=== PATIENT | female | born 1960 | race African-American/Black ===

== ENCOUNTER 2021-02-22 06:31 | Day surgery (SDC) | payer BC ==
[2021-02-19 12:27] LABS: Urine Appearance CLOUDY (Clear); Urine Bilirubin NEGATIVE (Negative); Urine Blood NEGATIVE (Negative); Urine Color YELLOW (Yellow); Urine Glucose NEGATIVE (Negative); Urine Protein NEGATIVE (Negative); Urine Specific Gravity 1.015 (1.005-1.030); Urine Urobilinogen 0.2 mg/dL (0.2-1.0); Urine pH 7.5 (5.0-7.0)
[2021-02-19 12:29] LABS: Urine Microscopic Reflex NO UMIC
[2021-02-19 12:30] LABS: Absolute Lymphocytes (CBC) 2.5 K/uL (0.7-4.9); Basophils % 0.7 % (0-1.3); Lymphocytes % 40.3 % (15.3-44.8); MPV 9.2 fL (7.6-11.3); RBC Red Blood Cell Count 4.86 M/uL (3.86-4.86)
[2021-02-22] MEDS ORDERED: SCOPOLAMINE HYDROBROMIDE PATCH TD ONE (07:14)
[2021-02-22] MEDS ORDERED: Ringers Lactate 1,000 ML IV ONE ×2 (07:14→07:26)
[2021-02-22] MEDS ORDERED: CEFAZOLIN/SWI 2gm 2 GM/20 ML SYR ONE (07:14)
[2021-02-22] MEDS ORDERED: BUPIVACAINE 0.5% PF 10 ML VIAL ONE (07:26)
[2021-02-22] MEDS ORDERED: NA CHLORIDE 0.9% 2,000 ML ONE (07:26)
[2021-02-22] MEDS ORDERED: propofoL 200 MG/20 ML VIAL IV ONE (07:29)
[2021-02-22] MEDS ORDERED: LIDOCAINE 1% MPF 5 ML VIAL ONE (07:29)
[2021-02-22] MEDS ORDERED: NS 0.9% VIAL 10 ML ONE (07:30)
[2021-02-22] MEDS ORDERED: FENTANYL CITR 250 MCG/5 ML ONE (07:30)
[2021-02-22] MEDS ORDERED: MIDAZOLAM HCL 2 MG/2 ML INJ ONE (07:30)
[2021-02-22] MEDS ORDERED: VECURONIUM 10 MG/VIAL IV ONE (07:30)
[2021-02-22] MEDS ORDERED: dexAMETHasone 10 MG/ML VIAL ONE (08:39)
[2021-02-22] MEDS ORDERED: ONDANSETRON 4 MG/2 ML VIAL ONE ×2 (08:40→11:55)
[2021-02-22] MEDS ORDERED: GLYCOPYRROLATE 0.2 MG/ML SYR ONE (10:15)
[2021-02-22] MEDS ORDERED: KETOROLAC 30 MG/ML INJ ONE (10:15)
[2021-02-22] MEDS ORDERED: NEOSTIGMINE 1 MG/ML -5 ML ONE (10:36)
[2021-02-22] MEDS ORDERED: PROMETHAZINE INJ 25 MG/ML AMP IV PRN (11:09)
[2021-02-22] MEDS ORDERED: MEPERIDINE HCL 25 MG/ML SYR IM PRN (11:09)
[2021-02-22] MEDS ORDERED: IBUPROFEN 200 MG TAB PO PRN (11:09)
--- NOTE | 2021-02-22 11:17 | P.BOP ---
Preoperative diagnosis: ASCUS pap, persistent dysplasia 15yr s/p LEEP Postoperative diagnosis: same, endometriosis, uterine prolapse Primary procedure: TLH BSO, USLS colpopexy, endometriosis removal,cystoscopy Oil Developer: Diana Murillo Estimated blood loss: 50 Specimen: uterus bilateral tubes and ovaries Findings: extensive endometriosis anterior CDS,post peritoneum,C=-1, 2-0PDS for usls Anesthesia: General Complications: None Transferred to: Recovery Room Condition: Good
[2021-02-22] MEDS ORDERED: ALENDRONATE 70 MG TAB PO SCH (12:00)
[2021-02-22] MEDS: HYDROCODONE/APAP 5/325 MG TAB PO PRN ×2 (12:17→14:20)
[2021-02-22] MEDS ORDERED: HYDROCODONE/APAP 5/325 MG TAB ONE ×2 (12:35→14:44)
[2021-02-22] MEDS ORDERED: FENTANYL CITR 100 MCG/2 ML ONE (12:51)
--- NOTE | 2021-02-22 20:31 | OP ---
Date of Procedure: 02/22/2021 Surgeon: Sofía Mishra MD [employer] Field: Diana Diamond. Preoperative Diagnoses: Persistent cervical dysplasia for 15 years status post loop electrosurgical excision procedure for severe cervical dysplasia, recurrent Pap atypical squamous cells of undetermined significance. Postoperative Diagnoses: Persistent cervical dysplasia for 15 years status post loop electrosurgical excision procedure for severe cervical dysplasia, recurrent Pap atypical squamous cells of undetermined significance and endometriosis and uterine prolapse, stage II. Primary Procedure: Total laparoscopic hysterectomy, bilateral salpingo- oophorectomy, uterosacral ligament suspension, colpopexy, endometriosis removal, and cystoscopy. Anesthesia: General. Specimens: Uterus, bilateral tubes and ovaries, and endometriosis included with serosa of the uterine specimen. Complications: No complications. Drains: No drains. Condition: The patient's condition stable. Findings: Extensive endometriosis in the anterior cul-de-sac, posterior peritoneum closer to the distal uterosacral ligaments as well as the immediately lateral to the uterosacral ligaments, point C was at -1 with a significant uterine descend. Although, the patient is asymptomatic unreasonable to not correct the apical prolapse at the time of hysterectomy to prevent future prolapse. So uterosacral ligament suspension was performed with a delayed absorbable PDS. Cystoscopy, both ureteric orifices were patent and no evidence of any trauma to the bladder or foreign body. Description Of Procedure: After informed consent was verified, the patient was taken back to OR. A 2 g of Ancef were given. SCDs were started. The patient was given general endotracheal anesthesia, placed in a dorsal lithotomy position using Adrien stirrups. The vulva, vagina, perineum, abdomen were all prepped and draped in a sterile fashion. Lopez placed to drain the bladder. Pelvic exam performed and this is when the uterine prolapse was discerned. Then, speculum placed to expose the cervix. The uterine manipulator was introduced into the uterus with a medium cup and fixed in place. Lopez drained and connected for retrograde filling. This area was draped. 1 cm infraumbilical incision made with a scalpel using the open laparoscopy technique. Fascia was incised and peritoneum entered sharply. S-retractors were placed. Abdias introduced. After adequate insufflation, site of entry was checked and was unremarkable. The patient was placed in Trendelenburg, 5 left lower quadrant and 10 suprapubic ports were placed under direct vision without any problems. All sides injected with Marcaine on the fascia and the skin. After survey of the upper abdominal cavity as well as the lower, no endometriosis on the upper abdomen, but lower abdominal cavity with significant peritoneal endometriosis as described above. So plan was to not deviate too far from the area of dissection, but remove all the endometriosis that was around. There was some within the anterior cul-de-sac and the posterior peritoneum as well. were excised. The lateral paraovarian area was opened up on the peritoneum. Dissection carried to isolate the pedicle and to the level of the posterior peritoneum. The ureter was visualized at the pelvic brim and thus taken far away from there. The ovarian pedicle was taken down. Then, peritoneum incised and dissection carried to the lateral part of the uterus detaching the tube and ovary from the lateral wall. Then the round ligament was taken down the broad ligament as well as the anterior and posterior pelvic peritoneum layers were taken down to the level of the vessels. The anterior peritoneum opened up to create a bladder flap and posterior peritoneum similarly opened up dissecting the peritoneal implants of the endometriosis along with this. Slightly posterior vaginal wall peritoneum also had it and this was also excised to include with the specimen. Once the vessels were identified, that was cauterized and left in place to be cut later. On the opposite side, similar dissection was performed taking the IP after isolating it, then taking down the peritoneum to separate the tube and ovary from the lateral wall. Then round ligament was taken down and broad ligament taken down as well. Anterior peritoneum connected for to complete the bladder flap and posteriorly taken down to the posterior cuff here and this was very clear that the right uterosacral was much more detached than the left side. Then, the ureters were identified from the pelvic brim to the ureteric tunnels and there was no evidence of any anatomical distortion. The bladder was dissected off the anterior vaginal wall with a monopolar hook blade, vesicovaginal space was entered and bladder was dissected inferiorly about a cm from the level of the cup. Then, the vessels were taken down on the right side with the bipolar basket tip and then the LigaSure. Also took down the cardinal ligaments and in opposite side on the left side vessels were taken down. Monopolar hook blade was used to perform a circumferential colpotomy. Specimen detached and pulled out through the vagina. Vessels were cauterized and cut before the colpotomy was completed. Uterosacral ligament was detached completely on the right side, left could discern where it was, but not very well attached to the apex. So after thorough irrigation and suction were performed and vaginal closure was done with 2 simple angle sutures, 3 [id number] in the center, all 0 Vicryl sutures. Then, 2-0 PDS were taken after exposing the uterosacral ligament. On the left side [id number] was taken then through the posterior vaginal wall and the anterior vaginal full-thickness sutures were taken and tied down bringing the uterosacral very well attached to the apex. Similar suture placed on the opposite side. The uterosacral was much more in the distal aspect, fattier likely from the detachment at least 5 cm proximal. The suture was taken and then passed through the posterior and anterior vaginal white and tied down to resuspend the apex and apex after this exam was -6, after the suspension. Thorough irrigation and suction were performed and all the pedicles were inspected. Excellent hemostasis and ureters had no evidence of electrical, mechanical, or thermal injury to them, had good peristalsis. All the trocars were removed under direct vision, and injected at the fascia and skin with Marcaine. Fascia at the umbilicus closed with the help of the tagged sutures, tied to each other, all 0 Vicryl and a simple 0 Vicryl stitch at the suprapubic fascial site. All skin incisions closed with interrupted 4-0 Vicryl and Lopez removed. Vaginal occluder was removed then went ahead and performed cystoscopy. There was slight delay in the jets of urine from the right side. However, there was a very strong jet convincing that there was no obstruction, partial or complete. Then rest of the bladder appeared completely unremarkable. Scope was pulled out. The bladder partially drained, and the patient was recovered from anesthesia after instrument needle and sponge counts were correct at the end of the case. The findings were discussed with her sister, and she will have the discussion after 1 week postop. JUDITH/HARVEY Voice ID: [id number] Report ID: [id number] ALEX
[2021-02-22 20:45] VITALS: BP 135/76; TEMP 97.8; O2SAT 96
[2021-02-22] MEDS ORDERED: ASCORBIC ACID 500 MG TABLET PO SCH (21:00)
[2021-02-22] MEDS ORDERED: ATORVASTATIN 20 MG TAB PO SCH (21:00)
[2021-02-23] MEDS ORDERED: AMLODIPINE 10 MG TAB PO SCH (09:00)
[2021-02-23] MEDS ORDERED: FOLIC AC PO SCH (09:00)
[2021-02-23] MEDS ORDERED: CALCIUM PO SCH (09:00)
[2021-02-23] MEDS ORDERED: VITAMIN D 5,000 UNIT CAP PO SCH (09:00)
[2021-02-23] MEDS ORDERED: [UNRECOGNIZED DRUG - OTHER] PO SCH (09:00)
[2021-02-23] MEDS ORDERED: MV MN PO SCH (09:00)
[2021-02-23] MEDS ORDERED: TETRAHYDROZOLINE HCL 150 DROPS/15 ML BTL EACH EYE SCH (09:00)
[2021-02-23] MEDS ORDERED: [UNRECOGNIZED DRUG - OTHER] PO SCH (09:00)
[2021-02-23] MEDS ORDERED: VIT K1 PO SCH (09:00)
== END 2021-02-22 15:50 | disposition home or self-care (01) ==
LOC: OR 06:31
PROVIDERS: ATTEND Obstetrics & Gynecology
PROC: 0UT24ZZ Resection of Bilateral Ovaries, Percutaneous Endoscopic Approach (ICD-10-PCS; 2021-02-22)
PROC: 0UT74ZZ Resection of Bilateral Fallopian Tubes, Percutaneous Endoscopic Approach (ICD-10-PCS; 2021-02-22)
PROC: 0USG7ZZ Reposition Vagina, Via Natural or Artificial Opening (ICD-10-PCS; 2021-02-22)
PROC: 0DBW4ZZ Excision of Peritoneum, Percutaneous Endoscopic Approach (ICD-10-PCS; 2021-02-22)
PROC: 0UT94ZZ Resection of Uterus, Percutaneous Endoscopic Approach (ICD-10-PCS; principal; 2021-02-22 07:30)
DX: R87.610 Atypical squamous cells of undetermined significance on cytologic smear of cervix (ASC-US) (principal); N95.2 Postmenopausal atrophic vaginitis; R03.0 Elevated blood-pressure reading, without diagnosis of hypertension; D25.2 Subserosal leiomyoma of uterus; N83.202 Unspecified ovarian cyst, left side; N80.0 Endometriosis of uterus; Z20.822 Contact with and (suspected) exposure to COVID-19; N80.3 Endometriosis of pelvic peritoneum
CPT/HCPCS: 85025; 36415; 86900; 86850; 86901; 88307; 81003; 58571; 57283; 58662; U0002; J2704; J2250; J3010 ×2; J1100; J2710; J0690; J7120 ×2; J7030; J2405 ×2

== ENCOUNTER 2024-08-30 09:26 | Day surgery (SDC) | payer BC ==
[2024-08-30] MEDS ORDERED: Ringers Lactate 1,000 ML IV ONE (09:49)
[2024-08-30 10:25] LABS: Absolute Eosinophils 0.2 K/uL (0-0.5); Absolute Lymphocytes (CBC) 2.9 K/uL (0.7-4.9); Absolute Monocytes 0.5 K/uL (0.1-1.3); Absolute Neutrophil 4.3 K/uL (1.8-8.0); Basophils % 0.5 % (0-1.3); Eosinophils % 2.2 % (0-4.4); Hematocrit 42.6 % (36.0-45.0); Hemoglobin 13.9 g/dL (12.0-15.0); Lymphocytes % 36.6 % (15.3-44.8); MCH 27.6 pg (27.0-35.0); MCHC 32.6 g/dL (32.0-36.0); MCV 84.6 fL (80-100); MPV 8.4 fL (7.6-11.3); Neutrophils % 54.7 % (41.7-73.7); Nucleated Red Blood Cells % 0.1 % (0-0); Platelets 310 thou/uL (152-406); RBC Red Blood Cell Count 5.04 M/uL (3.86-4.86); Red Cell Distribution Width 14.1 % (12.1-15.2)
[2024-08-30 10:30] LABS: Anion Gap 7.6 mEq/L (5.0-15.0); Potassium 3.6 mEq/L (3.5-5.1)
--- NOTE | 2024-08-30 10:46 | RAD REPORT ---
EXAMINATION: TWO VIEW CHEST XR CLINICAL INDICATION: Female, 64 years old. Preop Hypertension TECHNIQUE: 2 view radiographs of the chest were performed. COMPARISON: 08/30/2024 FINDINGS: The lungs are well inflated and clear. No pneumothorax or sizable effusion. The heart is normal in si ze. Mediastinal contours are unremarkable. IMPRESSION: No acute or significant abnormalities.
[2024-08-30] MEDS: CEFAZOLIN SODIUM 1 GM/VIAL ONE (11:18)
[2024-08-30] MEDS ORDERED: LIDOCAINE 2% MPF 5 ML VIAL ONE (11:38)
[2024-08-30] MEDS ORDERED: ONDANSETRON 4 MG/2 ML VIAL ONE (11:38)
[2024-08-30] MEDS ORDERED: KETOROLAC 30 MG/ML INJ ONE (11:38)
[2024-08-30] MEDS ORDERED: FENTANYL CITR 100 MCG/2 ML ONE (11:38)
[2024-08-30] MEDS ORDERED: MIDAZOLAM HCL 2 MG/2 ML INJ ONE (11:38)
[2024-08-30] MEDS ORDERED: propofoL 200 MG/20 ML VIAL IV ONE (11:38)
[2024-08-30] MEDS ORDERED: dexAMETHasone 10 MG/ML VIAL ONE (11:38)
[2024-08-30] MEDS ORDERED: NS 0.9% VIAL 10 ML ONE (11:59)
--- NOTE | 2024-08-30 12:20 | P.BOP ---
Preoperative diagnosis: right axillary tender subQ mass Postoperative diagnosis: same Primary procedure: Excisional biopsy of right axillary tender subQ mass 3x2cm Estimated blood loss: <10cc Specimen: gb Findings: as above Anesthesia: General Complications: None Transferred to: Recovery Room Condition: Good
[2024-08-30 12:30] VITALS: O2SAT 100
[2024-08-30 12:54] VITALS: BP 115/72; TEMP 98.1
--- NOTE | 2024-08-30 15:44 | DS ---
Date of Discharge: 08/30/2024 Diagnosis: Tender right axillary subcutaneous mass. Procedure: Excisional biopsy of tender axillary subcutaneous mass. Condition: Stable. Disposition: Home. Activity: As tolerated. No heavy lifting. Discharge Instructions: Follow up in my office in 1 week. Call for appointment at [phone]. Keep t he area dry for 48 hours, then may remove outer dressings and shower. May apply triple antibiotics a nd gauze on top. Medication, previously called. ASHLIE/HARVEY Voice ID: [id number] Report ID: [id number]
--- NOTE | 2024-08-30 15:44 | OP ---
Date of Procedure: 08/30/2024 Surgeon: Sarthak Mosquera MD Preoperative Diagnosis: Right axillary tender mass associated with the suppurative hidradenitis. Postoperative Diagnosis: Right axillary tender mass associated with the suppurative hidradenitis. Procedure: Excisional biopsy of right axillary tender subcutaneous mass about 3 x 2 cm. Estimated Blood Loss: Less than 10 cc. Findings: The patient has a process of a suppurative hidradenitis, but then has a subcutaneous mass, probably inflammatory process from this, more superficial disease. The lot was sent for evaluation. Anesthesia: General plus local. Complications: None. Indication: This is a case of a 64-year-old patient with a right axillary mass. About few weeks ag o, we gave her antibiotics. There was an infection in that region. The infection went away, but the mass still present. There is some hidradenitis present on top of that, but I cannot rule it out com pletely. She does not want to do more imaging. She just wanted it excised and biopsy. So, the bene fits, alternatives, and risks of excisional biopsy of right axillary mass fully explained, which incl ude, but not limited to, infection, bleeding, damage to adjacent structures, anesthesia complication, recurrence, AR, and even . She also understands this may not relieve any symptoms. She might need more than one surgical intervention. She understood, signed a consent. Description Of Procedure: The area of concern was marked by me and the patient in the holding room. The patient was brought to the operating room, placed in supine position. Anesthesia was induced wi thout complication. Right axillary area was prepped and draped in the usual sterile fashion. Local anesthesia was applied followed by sharp incision of the skin in a wedge fashion. We wanted to inclu de the skin and the subcutaneous mass. Incision was carried down to axillary fat pad. The mass was completely removed in 1 unit. The area was irrigated. Hemostasis was obtained. Local anesthesia wa s applied and then we closed the subcutaneous tissue with 3-0 chromic and the skin in a running fashi on 3-0 nylon. Sponge counts and instrument counts were correct. Patient tolerated the procedure wel l. The area was covered with sterile dressings. Patient was sent to Recovery in stable condition. ASHLIE/HARVEY Voice ID: [id number] Report ID: [id number]
--- NOTE | 2024-08-31 11:01 | EKG ---
Test Date: 2024-08-30 Test Time: 09:47:39 Pants Presser: JOSE MEASUREMENT RESULTS: Intervals: Rate: 83 NH: 146 QRSD: 68 QT: 376 QTc: 441 Hardwick: P: 70 NH: 146 QRS: 55 T: 54 INTERPRETIVE STATEMENTS: Normal sinus rhythm Normal ECG Compared to ECG 01/24/2021 12:12:44 No significant changes Electronically Signed On 08-31-24 10:57:17 CDT by Mohit Lynn
== END 2024-08-30 14:00 | disposition home or self-care (01) ==
LOC: OR 09:26
PROVIDERS: ATTEND Surgery
PROC: 0JBD0ZZ Excision of Right Upper Arm Subcutaneous Tissue and Fascia, Open Approach (ICD-10-PCS; 2024-08-30)
PROC: 0JBD0ZZ Excision of Right Upper Arm Subcutaneous Tissue and Fascia, Open Approach (ICD-10-PCS; principal; 2024-08-30 11:15)
DX: L72.0 Epidermal cyst (principal); L73.2 Hidradenitis suppurativa
CPT/HCPCS: 93005; 85025; 80048; 36415; 88304; 71046; 11403; A4216; J2704; J2003; J2250; J3010; J1100; J2405; J7120; J0690; 88305